=== PATIENT | female | born 1930 | race African-American/Black ===

== ENCOUNTER 2018-07-31 20:55 | Emergency (ER) | payer MEDICAID, OTHER ==
[~2018-07-31] VITALS: Ht 157.5 cm; Wt 74.0 kg
[~2018-07-31 20:55] MED LIST: ADVAIR; ALBUTEROL; ASPIRIN; DOXYCYCLINE; GLIPIZIDE; LISINOPRIL; LOVASTATIN; PULMICORT
[2018-07-31] MEDS ORDERED: ALBUTEROL (0.083%) 2.5MG/3ML NEB HHN STA (23:14)
[2018-07-31] MEDS ORDERED: IPRATROPIUM BROMIDE (0.02%) 0.5MG/2.5ML NEB HHN STA (23:14)
[2018-07-31] MEDS ORDERED: PREDNISONE 20MG TABLET PO STA (23:14)
[2018-08-01] MEDS ORDERED: VISCOUS LIDOCAINE 2% 15 ML UDC MM ONE (01:00)
[2018-08-01 01:28] VITALS: BP 141/68
== END 2018-07-31 23:41 | disposition home or self-care (01) ==
LOC: ER 20:55
DX: J45.901 Unspecified asthma with (acute) exacerbation (principal); J02.9 Acute pharyngitis, unspecified; E11.9 Type 2 diabetes mellitus without complications; Z88.0 Allergy status to penicillin; Z79.82 Long term (current) use of aspirin; Z87.891 Personal history of nicotine dependence; Z90.710 Acquired absence of both cervix and uterus
CPT/HCPCS: 71045; 94640; 99283; J7512; J7611

== ENCOUNTER 2020-12-13 11:51 | Emergency (ER) | payer OTHER ==
[~2020-12-13] VITALS: Ht 157.5 cm; Wt 73.0 kg
[2020-12-13] MEDS ORDERED: IPRATROPIUM BROMIDE (0.02%) 0.5MG/2.5ML NEB HHN STA (12:12)
[2020-12-13] MEDS: ALBUTEROL (0.083%) 2.5MG/3ML NEB HHN STA ×2 (12:12→13:30)
[2020-12-13] MEDS ORDERED: METHYLPREDNISOLONE SOD SUCC 125 MG/2 ML VIAL IV STA (12:12)
[2020-12-13 13:14] LABS: EOSINOPHILS % 5.3 % (0.0-5.0); HEMATOCRIT. 38.2 % (36.0-48.0); LYMPHOCYTES % 22.8 % (20.0-50.0); MEAN CORPUSCULAR HEMOGLOBIN 29.4 pg (28.0-32.0); MEAN CORPUSCULAR VOLUME 86.4 fL (81.0-99.0); MEAN PLATELET VOLUME 9.2 fl (7.4-10.4); MONOCYTES % 8.7 % (2.0-8.0); NEUTROPHILS % 62.2 % (40.0-76.0); PLATELET 216 x1000/uL (130-400); RED BLOOD CELL COUNT 4.42 mill/uL (4.2-5.4); RED CELL DISTRIBUTION WIDTH 14.1 % (11.6-14.6)
[2020-12-13 13:19] LABS: CHLORIDE 100 mEq/L (98-107)
[2020-12-13 14:30] VITALS: BP 135/80
[2020-12-13] MEDS ORDERED: P50 MT (14:59)
[2020-12-13] MEDS ORDERED: ALBU6.7H9 INH (14:59)
== END 2020-12-13 15:28 | disposition home or self-care (01) ==
LOC: ER 11:51 → CANBEDREQ 17:27
DX: J45.901 Unspecified asthma with (acute) exacerbation (principal); E11.9 Type 2 diabetes mellitus without complications; I10 Essential (primary) hypertension; J44.9 Chronic obstructive pulmonary disease, unspecified; Z88.0 Allergy status to penicillin; Z79.82 Long term (current) use of aspirin; Z90.710 Acquired absence of both cervix and uterus
CPT/HCPCS: 36415; 71045; 80053; 83880; 84484; 85025; 93005; 94640; 96374; 99285; J2930